=== PATIENT | male | born 1965 | race Caucasian/White ===

== ENCOUNTER → 2016-07-24 | Day surgery (SDC) | payer OTHER ==
[~2016-07-24] MED LIST: CERTAGEN1 EACH GT; COMBIVENT RESPIM4 GM INH; DURAGESIC1 EAC1 TD; FLONASE ALLER15.8 ML; KEPPRA100 MG/1 M GT; MAGIC MOUTHWASH PO; MAGNESIUM400 MG GT; METOPROLOL TART25 M1 GT; NEURONTIN300 MG GT; NORCO 7.5-3251 EACH GT; PEPCID AC20 MG GT; PREVACID30 M1 GT; PRINIVIL20 MG GT; THORAZINE25 MG PO; ZOCOR20 MG GT; ZOFRAN4 MG GT; ZOLOFT100 MG PO
[2016-07-24 08:27] LABS: HCT 30.4 % (42.0-52.0); HGB 10.1 g/dl (13.2-18.0); MCH 33.8 pg (25.0-31.0); MCHC 33.2 g/dL (32.0-36.0); MCV 101.7 fL (78.0-100.0); RBC 2.99 M/uL (4.70-6.00); RDW 13.4 % (11.5-14.0); WBC 13.8 K/uL (4.0-10.5)
[2016-07-24 08:37] LABS: ALBUMIN 3.3 g/dL (3.5-5.0); BILIRUBIN - TOTAL 0.4 mg/dL (0.1-1.0); CREATININE 0.6 mg/dL (0.7-1.2); GLOBULIN (CALCULATION) 3.9 g/dL (2.2-4.2); POTASSIUM 4.4 mmol/L (3.5-5.1); TOTAL PROTEIN 7.2 g/dL (6.4-8.3)
== END | disposition home or self-care (01) ==
LOC: FAS 07:50
PROVIDERS: Surgery
DX: K94.23 Gastrostomy malfunction (principal); I10 Essential (primary) hypertension; J44.9 Chronic obstructive pulmonary disease, unspecified; Z86.73 Personal history of transient ischemic attack (TIA), and cerebral infarction without residual deficits; E03.9 Hypothyroidism, unspecified; Z87.891 Personal history of nicotine dependence; Z88.6 Allergy status to analgesic agent; Z79.899 Other long term (current) drug therapy; Z98.890 Other specified postprocedural states
CPT/HCPCS: 36415; 80053; J2704

== ENCOUNTER 2016-08-07 10:03 | Emergency (ER) | payer OTHER ==
[2016-08-07 11:01] LABS: BASOPHIL 0.2 % (0-2); EOSINOPHIL 0.5 % (0-5); HCT 30.8 % (42.0-52.0); HGB 10.4 g/dl (13.2-18.0); LYMPHOCYTE 6.1 % (15-48); MCHC 33.8 g/dL (32.0-36.0); MCV 100.7 fL (78.0-100.0); MONOCYTE 6.4 % (0-12); MPV 9.2 fL (6.0-9.5); NEUTROPHIL 86.8 % (41-80); PLT 287 K/uL (150-400); RBC 3.06 M/uL (4.70-6.00); RDW 13.3 % (11.5-14.0); WBC 13.8 K/uL (4.0-10.5)
[2016-08-07 11:24] LABS: ALBUMIN 3.5 g/dL (3.5-5.0); BILIRUBIN - TOTAL 0.3 mg/dL (0.1-1.0); CREATININE 0.7 mg/dL (0.7-1.2); GLOBULIN (CALCULATION) 4.3 g/dL (2.2-4.2); INR 1.22 (0.9-1.2); POTASSIUM 4.5 mmol/L (3.5-5.1); TOTAL PROTEIN 7.8 g/dL (6.4-8.3)
[2016-08-07 11:25] LABS: PTT 44.9 SECONDS (23.2-31.4)
[2016-08-07 12:55] LABS: BILIRUBIN NEGATIVE (NEGATIVE); BLOOD NEGATIVE Ery/uL (NEGATIVE); CLARITY CLEAR (CLEAR); COLOR YELLOW (YELLOW); GLUCOSE (U) NORMAL (NORMAL); KETONE (U) NEGATIVE (NEGATIVE); LEUKOCYTES NEGATIVE Leu/uL (NEGATIVE); NITRITE NEGATIVE (NEGATIVE); PROTEIN NEGATIVE (NEGATIVE); SPECIFIC GRAVITY <=1.005 (1.001-1.030); UROBILINOGEN 0.2 mg/dL (0.2-1.0)
[2016-08-07 14:00] LABS: LACTIC ACID 0.5 mmol/L (0.5-2.2)
== END 2016-08-07 17:26 | disposition other institution (70) ==
LOC: FER 10:03
PROVIDERS: Emergency Medicine
DX: R51 Headache (principal); G89.29 Other chronic pain; J85.2 Abscess of lung without pneumonia; F41.9 Anxiety disorder, unspecified; F32.9 Major depressive disorder, single episode, unspecified; R53.1 Weakness; R82.90 Unspecified abnormal findings in urine; Z79.899 Other long term (current) drug therapy; Z88.6 Allergy status to analgesic agent; Z93.1 Gastrostomy status; Z93.0 Tracheostomy status; Z86.73 Personal history of transient ischemic attack (TIA), and cerebral infarction without residual deficits
CPT/HCPCS: 36415; 70450; 71010; 80053; 81003; 83605; 85025; 85610; 85730; 87040; 87088; 93005; 94640; J2270; J2405; J2543

== ENCOUNTER → 2016-09-28 | Day surgery (SDC) | payer OTHER ==
[~2016-09-28] VITALS: Ht 162.5 cm; Wt 49.1 kg
== END | disposition home or self-care (01) ==
LOC: FAS 06:54
DX: K13.70 Unspecified lesions of oral mucosa (principal); C06.9 Malignant neoplasm of mouth, unspecified; R59.9 Enlarged lymph nodes, unspecified; K11.7 Disturbances of salivary secretion; J38.7 Other diseases of larynx; Z86.73 Personal history of transient ischemic attack (TIA), and cerebral infarction without residual deficits; J44.9 Chronic obstructive pulmonary disease, unspecified; F17.210 Nicotine dependence, cigarettes, uncomplicated